=== PATIENT | male | born 1995 | race Two or more races ===

== ENCOUNTER 2017-08-03 05:48 | Emergency (ER) | payer BC ==
[~2017-08-03] VITALS: Ht 180.3 cm; Wt 90.7 kg
[2017-08-03 06:22] LABS: Eosinophils # (auto) 0.7 uL; Eosinophils % (auto) 7.2 % (0.0-7.0); Monocytes # (auto) 0.7 uL; Nucleated Red Blood Cells % 0.1 %; Red Cell Distribution Width 13.9 % (11.8-14.3)
[2017-08-03 06:26] LABS: Basophils # (auto) 0 uL; Basophils % (auto) 0.5 % (0.0-2.0); Hematocrit 44.4 % (41.0-53.0); Hemoglobin 14.9 g/dL (13.5-17.5); Lymphocytes # (auto) 3.5 uL; Lymphocytes % (auto) 37.8 % (10.0-50.0); Mean Corpuscular Hemoglobin 26.9 pg (28.0-32.0); Mean Corpuscular Hgb Conc. 33.5 g/dL (32.0-36.0); Mean Corpuscular Volume 80.2 fL (80.0-100.0); Monocytes % (auto) 7.4 % (0.0-12.0); Neutrophils # (auto) 4.3 uL; Neutrophils % (auto) 47.1 % (37.0-80.0); Platelet Count (auto) 291 10^3/uL (140-450); Red Blood Cells 5.54 10^6/uL (4.5-5.90); White Blood Cell 9.1 10^3/uL (4.4-10.8)
[2017-08-03 06:33] LABS: Partial Thromboplastin Time 26.6 sec (23.78-33.04); Prothrombin Time 10.7 sec (9.27-12.13)
[2017-08-03 06:36] LABS: Alanine Aminotransferase 51 U/L (16-61); Anion Gap 8 (5-15); Aspartate Aminotransferase 17 U/L (15-37); BUN/Creatinine Ratio 12.5; Blood Urea Nitrogen 14 mg/dL (7-18); Calcium 8.8 mg/dL (8.5-10.1); Carbon Dioxide 25 mmol/L (21-32); Chloride 105 mmol/L (98-107); GFR African American 104 mL/min; GFR Non-African American 86 mL/min; Glucose 136 mg/dL (74-106); Potassium 4.1 mmol/L (3.5-5.1); Sodium 138 mmol/L (136-145)
[2017-08-03 06:41] LABS: Alkaline Phosphatase 80 U/L (45-117); Bilirubin, Total 0.3 mg/dL (0.2-1.0); Total Protein 7.8 g/dL (6.4-8.2)
[2017-08-03 07:18] LABS: Amphetamine Screen, Urine NEGATIVE (NEGATIVE); Barbiturate Scree,Urine NEGATIVE (NEGATIVE); Benzodiazephine Screen, Urine NEGATIVE (NEGATIVE); Cannabinoid Screen, Urine POSITIVE (NEGATIVE); Cocaine Screen, Urine NEGATIVE (NEGATIVE); Opiate Scree,Urine NEGATIVE (NEGATIVE); Phencyclidine Screen, Urine NEGATIVE (NEGATIVE)
[2017-08-03 08:20] VITALS: BP 130/76
== END 2017-08-03 10:12 | disposition home or self-care (01) ==
LOC: ER 05:50
DX: K29.70 Gastritis, unspecified, without bleeding (principal); F12.10 Cannabis abuse, uncomplicated; F17.210 Nicotine dependence, cigarettes, uncomplicated
CPT/HCPCS: 36415; 71046; 80053; 80307; 83735; 83880; 84443; 84484; 85025; 85610; 85730; 93005

== ENCOUNTER 2017-12-19 15:06 | Emergency (ER) | payer BC ==
[~2017-12-19] VITALS: Ht 180.3 cm; Wt 79.4 kg
[2017-12-19 16:07] LABS: Basophils # (auto) 0.1 uL; Basophils % (auto) 0.9 % (0.0-2.0); Eosinophils # (auto) 0.4 uL; Eosinophils % (auto) 5.8 % (0.0-7.0); Hematocrit 42.8 % (41.0-53.0); Hemoglobin 14.6 g/dL (13.5-17.5); Lymphocytes # (auto) 2.7 uL; Lymphocytes % (auto) 40.2 % (10.0-50.0); Mean Corpuscular Hgb Conc. 34.3 g/dL (32.0-36.0); Mean Corpuscular Volume 78.9 fL (80.0-100.0); Monocytes # (auto) 0.5 uL; Monocytes % (auto) 7.4 % (0.0-12.0); Neutrophils % (auto) 45.7 % (37.0-80.0); Nucleated Red Blood Cells % 0.3 %; Platelet Count (auto) 259 10^3/uL (140-450); Red Blood Cells 5.42 10^6/uL (4.5-5.90); Red Cell Distribution Width 13.7 % (11.8-14.3); White Blood Cell 6.7 10^3/uL (4.4-10.8)
[2017-12-19 16:07] LABS: Urine Bacteria NONE SEEN /hpf (None Seen); Urine Blood Negative /uL (Negative); Urine Specific Gravity 1.001 (1.001-1.035); Urine WBC <1 /hpf (0 - 3)
[2017-12-19 16:18] LABS: Albumin 4.1 g/dL (3.4-5.0); Calcium 9.1 mg/dL (8.5-10.1); Potassium 4.2 mmol/L (3.5-5.1)
[2017-12-19 16:30] LABS: BUN/Creatinine Ratio 11.7; Bilirubin, Total 0.5 mg/dL (0.2-1.0); Total Protein 7.7 g/dL (6.4-8.2)
[2017-12-19] MEDS ORDERED: PANTOPRAZOLE 40 MG/10 ML VIAL IV ONE (17:30)
[2017-12-19] MEDS ORDERED: ONDANSETRON HCL 4 MG/2 ML VIAL IV ONE (17:30)
[2017-12-19 18:25] LABS: Alcohol, Urine < 3.0 mg/dL (0-5); Amphetamine Screen, Urine NEGATIVE (NEGATIVE); Barbiturate Scree,Urine NEGATIVE (NEGATIVE); Benzodiazephine Screen, Urine NEGATIVE (NEGATIVE); Cannabinoid Screen, Urine NEGATIVE (NEGATIVE); Cocaine Screen, Urine NEGATIVE (NEGATIVE); Opiate Scree,Urine NEGATIVE (NEGATIVE); Phencyclidine Screen, Urine NEGATIVE (NEGATIVE)
[2017-12-19 19:05] VITALS: BP 115/70
== END 2017-12-19 19:06 | disposition home or self-care (01) ==
LOC: ER 15:06
DX: K29.00 Acute gastritis without bleeding (principal); F17.210 Nicotine dependence, cigarettes, uncomplicated; F12.10 Cannabis abuse, uncomplicated
CPT/HCPCS: 36415; 76705; 80053; 80307; 81001; 82150; 83690; 85025; 93005; 94761; 96374; 96375; 99285; C9113; J2405

== ENCOUNTER 2018-01-02 04:30 | Observation (INO) | payer BC ==
[~2018-01-02] VITALS: Ht 180.3 cm; Wt 79.5 kg
[2018-01-02 07:26] LABS: Basophils # (auto) 0 uL; Eosinophils # (auto) 0.3 uL; Hematocrit 41.7 % (41.0-53.0); Mean Corpuscular Hemoglobin 26.5 pg (28.0-32.0); Monocytes # (auto) 0.5 uL; Monocytes % (auto) 6.1 % (0.0-12.0)
[2018-01-02 07:28] LABS: Albumin 4.1 g/dL (3.4-5.0); Amylase 79 U/L (25-115); Anion Gap 8 (5-15); Blood Urea Nitrogen 6 mg/dL (7-18); Calcium 8.9 mg/dL (8.5-10.1); Carbon Dioxide 25 mmol/L (21-32); Chloride 100 mmol/L (98-107); Glucose 106 mg/dL (74-106); Lipase 164 U/L (73-393); Potassium 3.7 mmol/L (3.5-5.1); Sodium 133 mmol/L (136-145)
[2018-01-02 07:29] LABS: Basophils % (auto) 0.3 % (0.0-2.0); Eosinophils % (auto) 4.1 % (0.0-7.0); Lymphocytes # (auto) 1.9 uL; Lymphocytes % (auto) 23.6 % (10.0-50.0); Mean Corpuscular Hgb Conc. 33.5 g/dL (32.0-36.0); Neutrophils # (auto) 5.3 uL; Neutrophils % (auto) 65.9 % (37.0-80.0); Nucleated Red Blood Cells % 0.1 %; Platelet Count (auto) 211 10^3/uL (140-450); Red Blood Cells 5.27 10^6/uL (4.5-5.90); Red Cell Distribution Width 13.9 % (11.8-14.3)
[2018-01-02 07:35] LABS: Alanine Aminotransferase 41 U/L (16-61); Alkaline Phosphatase 85 U/L (45-117); Aspartate Aminotransferase 17 U/L (15-37); Bilirubin, Total 0.7 mg/dL (0.2-1.0); GFR African American 141 mL/min; GFR Non-African American 116 mL/min; Total Protein 7.3 g/dL (6.4-8.2)
[2018-01-02 07:40] LABS: INR 1.07 (0.9-1.15); Partial Thromboplastin Time 27.3 sec (23.78-33.04); Prothrombin Time 11.4 sec (9.27-12.13)
[2018-01-02] MEDS ORDERED: SODIUM CHLORIDE 0.9% 1,000 ML IVB ONE (08:03)
[2018-01-02] MEDS ORDERED: LIDOCAINE VISCOUS 2% 15ML UD PO ONE (08:15)
[2018-01-02] MEDS ORDERED: ALUM & MAG HYDROX-SIMETH LIQ(MAALOX) 30 ML PO ONE (08:15)
[2018-01-02] MEDS ORDERED: FAMOTIDINE 20 MG TAB PO ONE (08:15)
[2018-01-02] MEDS ORDERED: DONNATAL 5ml ORAL Elix (BELLADONNA ALK-PHENOBARB) PO ONE (08:15)
[2018-01-02 10:18] LABS: Urine WBC None Seen /hpf (0 - 3)
[2018-01-02 10:37] VITALS: BP 108/59
[2018-01-02 10:41] LABS: Urine Bacteria FEW /hpf (None Seen); Urine Blood Negative /uL (Negative); Urine Specific Gravity 1.002 (1.001-1.035)
[2018-01-02 11:01] LABS: Alcohol, Urine < 3.0 mg/dL (0-5); Amphetamine Screen, Urine NEGATIVE (NEGATIVE); Barbiturate Scree,Urine NEGATIVE (NEGATIVE); Benzodiazephine Screen, Urine NEGATIVE (NEGATIVE); Cannabinoid Screen, Urine NEGATIVE (NEGATIVE); Cocaine Screen, Urine NEGATIVE (NEGATIVE); Opiate Scree,Urine NEGATIVE (NEGATIVE); Phencyclidine Screen, Urine NEGATIVE (NEGATIVE)
== END 2018-01-02 12:13 | disposition home or self-care (01) | DRG 690 ==
LOC: ER 04:30 → TELE 04:31 → ER 11:21 → TELE 12:13
PROVIDERS: ADMIT Emergency Medicine; ATTEND Emergency Medicine
DX: N39.0 Urinary tract infection, site not specified (principal); R10.13 Epigastric pain; F17.210 Nicotine dependence, cigarettes, uncomplicated; F41.9 Anxiety disorder, unspecified
CPT/HCPCS: 36415; 71046; 74176; 80053; 80307; 81001; 82150; 83690; 83735; 84443; 84484; 85025; 85610; 85730; 99285; G0378

== ENCOUNTER 2024-12-30 06:02 | Emergency (ER) | payer SELFPAY, OTHER ==
[~2024-12-30] VITALS: Ht 180.3 cm; Wt 90.7 kg
[2024-12-30] MEDS: SODIUM CHLORIDE 0.9% 1,000 ML IV ONE (07:00)
--- NOTE | 2024-12-30 07:09 | ED.PDOC ---
GI ASSESSMENT HPI Comments This is a 29-year-old male with a PMHx of hyperlipidemia, who presents to the ED with a chief complaint of N/V S/P ETOH intoxification at 22:30 last night. Patient reports drinking a lot of whiskey, exact amount unknown. Patient has no further complaints at this time and otherwise denies further associated symptoms of abdominal pain, chest pain, dysuria, hematuria, hematemesis, or fever. Chief Complaint: Abdominal Pain Time Seen by MD: 06:42 Primary Care Provider: AKASH Reviewed Notes: Medications, Allergies Allergies: Coded Allergies: NO KNOWN ALLERGIES (Unverified , 08/03/17) Information Source: Patient Mode of Arrival: Ambulatory Timing: Hours Duration: Since onset Severity: Moderate Recent: Ingestion of ETOH Associated sign and symptoms: Nausea, Vomiting Past Medical History PAST MEDICAL HISTORY: Denies Surgical History: Denies all surgeries Family History Family History: Unknown Social History Smoker: Cigarettes, Less Than 1 Pack/Day Alcohol: Heavy Drugs: Marijuana Lives In: Home Constitutional: denies: chills, diaphoresis, fatigue, fever, malaise, sweats, weakness, others EENTM: denies: blurred vision, double vision, ear bleeding, ear discharge, ear drainage, ear pain, ear ringing, eye pain, eye redness, hearing loss, mouth pain, mouth swelling, nasal discharge, nose bleeding, nose congestion, nose pain, photophobia, tearing, throat pain, throat swelling, voice changes, others Respiratory: denies: cough, hemoptysis, orthopnea, SOB at rest, shortness of breath, SOB with excertion, stridor, wheezing, others Cardiovascular: denies: chest pain, dizzy spells, diaphoresis, Dyspnea on exertion, edema, irregular heart beat, left arm pain, lightheadedness, palpitations, PND, syncope, others Gastrointestinal: reports: nausea, vomiting; denies: abdomen distended, abdominal pain, blood streaked bowels, constipated, diarrhea, dysphagia, difficulty swallowing, hematemesis, melena, poor appetite, poor fluid intake, rectal bleeding, rectal pain, others Genitourinary: denies: burning, dysuria, flank pain, frequency, hematuria, incontinence, penile discharge, penile sore, pain, testicle pain, testicle swelling, urgency, others Neurological: denies: dizziness, fainting, headache, left sided numbness, left sided weakness, numbness, paresthesia, pre-existing deficit, right sided numbness, right sided weakness, seizure, speech problems, tingling, tremors, weakness, others Musculoskeletal: denies: back pain, gout, joint pain, joint swelling, muscle pain, muscle stiffness, neck pain, others Integumetry: denies: bruises, change in color, change in hair/nails, dryness, laceration, lesions, lumps, rash, wounds, others Allergic/Immunocompromised: denies: Difficulty Healing, Frequent Infections, Hives, Itching, others Hematologic/Lymphatic: denies: anemia, blood clots, easy bleeding, easy bruising, swollen glands, others Endocrine: denies: excessive hunger, excessive sweating, excessive thirst, excessive urination, flushing, intolerance to cold, intolerance to heat, unexplained weight gain, unexplained weight loss, others Psychiatric: denies: anxiety, bipolar disorder, depression, hopeless, panic disorder, schizophrenia, sleepless, suicidal, others All Other Systems: Reviewed and Negative Physical Exam General Appearance: Moderate Distress HEENT: Normal ENT Inspection, Pharynx Normal, TMs Normal Neck: Full Range of Motion, Non-Tender, Normal, Normal Inspection Respiratory: Chest Non-Tender, Lungs Clear, No Accessory Muscle Use, No Respiratory Distress, Normal Breath Sounds Cardiovascular: No Edema, No JVD, No Murmur, No Gallop, Normal Peripheral Pulses, Regular Rate/Rhythm Breast Exam: Deferred Gastrointestinal: No Organomegaly, Non Tender, No Pulsatile Mass, Normal Bowel Sounds, Soft Genitalia: Deferred Pelvic: Deferred Rectal: Deferred Extremities: No calf tenderness, Normal capillary refill, Normal inspection, No rmal range of motion, Non-tender, No pedal edema Musculoskeletal : Apperance: Normal Neurologic: Alert, chrome plater II-XII nml as Tested, No Motor Deficits, Normal Affect, Normal Mood, No Sensory Deficits Cerebellar Function: Normal Reflexes: Normal Skin: Dry, Normal Color, Warm Peripheral Pulses: 3+ Radial (R), 3+ Radial (L) Lymphatic: No Adenopathy Was a procedure done? Was a procedure done?: No GI differential Dx Differential Diagnosis: Constipation, Diverticular disease, Esophagitis, Gastritis/PUD, Gastroenteritis, Urolithiasis, Dehydration, Food Poisoning, Bacterial, Parasitic, Viral X-Ray, Labs, Meds, VS Vital Signs Date Time Temp Pulse Resp B/P (MAP) Pulse Ox O2 Delivery O2 Flow Rate FiO2 12/30/24 06:12 99 12/30/24 06:03 96.0 104 18 125/90 98 96.0 Lab Test 12/30/24 06:59 Range/Units White Blood Count 8.4 4.4-10.8 10^3/uL Red Blood Count 5.69 4.5-5.90 10^6/uL Hemoglobin 14.8 13.5-17.5 g/dL Hematocrit 43.9 41.0-53.0 % Mean Corpuscular Volume 77.1 L 80.0-100.0 fL Mean Corpuscular Hemoglobin 26.1 L 28.0-32.0 pg Mean Corpuscular Hemoglobin Concent 33.8 32.0-36.0 g/dL Red Cell Distribution Width 14.2 11.8-14.3 % Platelet Count 274 140-450 10^3/uL Mean Platelet Volume 8.5 6.9-10.8 fL Neutrophils (%) (Auto) 78.9 37.0-80.0 % Lymphocytes (%) (Auto) 16.5 10.0-50.0 % Monocytes (%) (Auto) 4.1 0.0-12.0 % Eosinophils (%) (Auto) 0.3 0.0-7.0 % Basophils (%) (Auto) 0.2 0.0-2.0 % Neutrophils # (Auto) 6.7 1.6-8.6 10 ^3/uL Lymphocytes # (Auto) 1.4 0.4-5.4 10 ^3/uL Monocytes # (Auto) 0.3 0-1.3 10 ^3/uL Eosinophils # (Auto) 0 0-0.8 10 ^3/uL Basophils # (Auto) 0 0-0.2 10 ^3/uL Nucleated Red Blood Cells 0.1 % Sodium Level 142 136-145 mmol/L Potassium Level 4.2 3.5-5.1 mmol/L Chloride Level 104 98-107 mmol/L Carbon Dioxide Level 22 20-31 mmol/L Anion Gap 16 H 5-15 Blood Urea Nitrogen 11 9-23 mg/dL Creatinine 0.90 0.700-1.30 mg/dL Glomerular Filtration Rate Calc 117 >90 mL/min BUN/Creatinine Ratio 12.2 10.0-20.0 Serum Glucose 105 74-106 mg/dL Calcium Level 9.8 8.7-10.4 mg/dL Plasma/Serum Blood Alcohol 23.4 H <10 mg/dL Current Medications Medications (Trade) Dose Ordered Sig/Finesse Route Start Time Stop Time Status Last Admin Sodium Chloride 1,000 ml @ 1,000 mls/hr Q1H ONCE IV 12/30/24 07:00 12/30/24 07:59 DC 12/30/24 07:00 Ondansetron HCl (Zofran) 4 mg ONCE ONCE IV 12/30/24 07:00 12/30/24 07:01 DC 12/30/24 07:51 Thiamine HCl 100 mg ONCE ONCE IV 12/30/24 07:00 12/30/24 07:01 DC 12/30/24 07:50 Patient alert. Complaining of nausea vomiting after having alcohol. He normally does not drink. Vitals stable. Answering questions. Establish intravenous access. Was given fluids. Was given thiamine. Was given Zofran. Was given pain medication. Explained to the patient. Continue monitoring. Time of 1ST Reevaluation: 07:54 Reevaluation 1ST: Unchanged Patient Education/Counseling: Diagnosis, Treatment Family Education/Counseling: No Family Present SEPSIS Sepsis Screen Date sepsis recognized/suspect: Dec 30, 2024 Time Sepsis recognized/suspect: 607 Recent Procedure: No On Antibiotic Therapy: No Respiratory Rate >20: No Heart Rate >90: No Temp<36 C (96.8 F) or >38.3 C: No SBP <90 or MAP <65 mmHG: No New Acute Mental Status Change: No Is the patient on CPAP, BIPAP,: No Vital Signs Date Time Temp Pulse Resp B/P (MAP) Pulse Ox O2 Delivery O2 Flow Rate FiO2 12/30/24 06:12 99 12/30/24 06:03 96.0 104 18 125/90 98 96.0 Laboratory Tests Test 12/30/24 06:59 White Blood Count 8.4 10^3/uL (4.4-10.8) Medications Medications Dose Ordered Sig/Finesse Route Start Time Stop Time Status Last Admin Dose Admin Ondansetron HCl 4 mg ONCE ONCE IV 12/30/24 07:00 12/30/24 07:01 DC 12/30/24 07:51 Sodium Chloride 1,000 ml @ 1,000 mls/hr Q1H ONCE IV 12/30/24 07:00 12/30/24 07:59 DC 12/30/24 07:00 Thiamine HCl 100 mg ONCE ONCE IV 12/30/24 07:00 12/30/24 07:01 DC 12/30/24 07:50 Departure 1 Departure Time of Disposition: 07:19 Impression: Primary Impression: Intractable vomiting Additional Impression: Alcohol abuse Disposition: 01 HOME / SELF CARE / HOMELESS Condition: Good Discharged With: Self Critical Care Note Critical Care Time?: Yes (90 min-critical care time only) Stability Stability form required: No Heart Score Heart Score: Heart Score Response (Comments) Value History N/A 0 EKG N/A 0 Age N/A 0 Risk Factors N/A 0 Troponin N/A 0 Total 0 I personally scribed for NASRIN MALIK MD ([email or web address]) on 12/30/24 at 07:09. Electronically submitted by Naz Simpson ([facility]). NASRIN MALIK MD Dec 30, 2024 07:09
--- NOTE | 2024-12-30 07:19 | ECG ---
[facility] Test Date: 2024-12-30 Test Time: 06:12:02 Pat Name: UMAIR RAYA Department: Room: Gender: M Healthcare Risk Control Consultant: DALTON : 1995 Requested By: NASRIN MALIK Order Number: [id number] Reading MD: Norman Palomino Measurements Intervals [place] Rate: 99 P: 73 MA: 143 QRS: 74 QRSD: 90 T: -18 QT: 356 QTc: 457 Interpretive Statements Sinus rhythm Borderline T abnormalities, inferior leads Electronically Signed On 01-01-2025 15:02:45 PDT by Norman Palomino Please click the below link to view image of tracing.
[2024-12-30 07:34] LABS: Hemoglobin 14.8 g/dL (13.5-17.5); Mean Corpuscular Hemoglobin 26.1 pg (28.0-32.0)
[2024-12-30 07:36] LABS: Hematocrit 43.9 % (41.0-53.0); Mean Corpuscular Volume 77.1 fL (80.0-100.0); Nucleated Red Blood Cells % 0.1 %
[2024-12-30 07:44] LABS: Chloride 104 mmol/L (98-107); Potassium 4.2 mmol/L (3.5-5.1); Sodium 142 mmol/L (136-145)
[2024-12-30 07:45] LABS: Anion Gap 16 (5-15); Calcium 9.8 mg/dL (8.7-10.4); Carbon Dioxide 22 mmol/L (20-31)
[2024-12-30 07:50] LABS: BUN/Creatinine Ratio 12.2 (10.0-20.0); Blood Urea Nitrogen 11 mg/dL (9-23); Glucose 105 mg/dL (74-106)
[2024-12-30] MEDS: THIAMINE 100mg/ml INJ (200mg/2ml VIAL) IV ONE (07:50)
[2024-12-30] MEDS: ONDANSETRON HCL 4 MG/2 ML VIAL IV ONE (07:51)
[2024-12-30] MEDS: PANTOPRAZOLE 40 MG/10 ML VIAL INJ IV ONE (11:00)
[2024-12-30 11:04] VITALS: BP 125/74; PULSE 78; RESP 18; TEMP 98.1; O2SAT 99
== END 2024-12-30 11:08 | disposition home or self-care (01) ==
LOC: ER 06:02
DX: F10.10 Alcohol abuse, uncomplicated (principal); R11.2 Nausea with vomiting, unspecified; F17.210 Nicotine dependence, cigarettes, uncomplicated; F12.90 Cannabis use, unspecified, uncomplicated; E78.5 Hyperlipidemia, unspecified; Y90.9 Presence of alcohol in blood, level not specified
CPT/HCPCS: 36415; 80048; 80320; 85025; 93005; 96361; 96374; 96375; 99284; J2405; J2470; J3411; J7030